=== PATIENT | female | born 1945 | race Caucasian/White ===

== ENCOUNTER 2018-03-19 17:51 | Outpatient (CLI) | payer MEDICARE, OTHER | END 2018-03-19 17:52 | disposition critical access hospital (66) | LOC: EMS 17:51 | PROVIDERS: ATTEND Surgery | DX: R11.2 Nausea with vomiting, unspecified (principal); R53.1 Weakness | CPT/HCPCS: A0425; A0427 ==

== ENCOUNTER 2018-03-19 18:18 | Inpatient (IN) | payer MEDICARE, OTHER ==
[2018-03-19 18:55] LABS: BASOPHILS # (AUTO) 0.1 10^3/uL (0.0-0.1); BASOPHILS % (AUTO) 1.2 %; EOSINOPHILS # (AUTO) 0.1 10^3/uL (0.0-0.7); EOSINOPHILS % (AUTO) 2.1 %; HGB - HEMOGLOBIN 10.8 g/dL (12.0-16.0); LYMPHOCYTES # (AUTO) 0.9 10^3/uL (1.5-3.5); LYMPHOCYTES % (AUTO) 15.7 %; MEAN CORPUSCULAR HEMOGLOBIN 33.3 pg (27.0-31.0); MEAN CORPUSCULAR HGB CONC 33.8 g/dL (32.0-36.0); MEAN CORPUSCULAR VOLUME 98.6 fL (81.0-99.0); MEAN PLATELET VOLUME 9.3 fL (7.9-10.8); MONOCYTES # (AUTO) 0.4 10^3/uL (0.0-1.0); MONOCYTES % (AUTO) 7.6 %; NEUTROPHILS # (AUTO) 4.3 10^3/uL (1.5-6.6); NEUTROPHILS % (AUTO) 73.4 %; PLT - PLATELET COUNT 60 10^3/uL (130-450); RED BLOOD COUNT 3.26 10^6/uL (4.20-5.40); RED CELL DISTRIBUTION WIDTH 13.5 % (12.0-15.0); WHITE BLOOD COUNT 5.8 x10^3/uL (4.8-10.8)
[2018-03-19 19:11] LABS: ALBUMIN 3.2 g/dL (3.2-5.5); ALBUMIN/GLOBULIN RATIO 0.8 (1.0-2.2); BILIRUBIN,TOTAL 1.6 mg/dL (0.2-1.0); CALCIUM 8.8 mg/dL (8.5-10.3); TOTAL PROTEIN 7.1 g/dL (6.7-8.2)
[2018-03-19] MEDS ORDERED: SODIUM CHLORIDE 0.9% 1,000 ML IV ONE ×2 (19:54→19:55)
[2018-03-19] MEDS ORDERED: INSULIN REGULAR HUMAN 100 UNIT/1 ML 10 ML MDV SUBQ STA (19:57)
[2018-03-19] MEDS ORDERED: DEXTROSE 50% ABBOJECT 25 GM/50 ML SYRINGE IVP STA (19:57)
[2018-03-19] MEDS ORDERED: PROMETHAZINE INJ 12.5 MG in SODIUM CHLORIDE 0.9% 50 ML IV STA (20:28)
--- NOTE | 2018-03-19 22:02 | CT Preliminary Report ---
Exam: CT ABDOMEN/PELVIS W/O IMPRESSION: 1. Liver cirrhosis. Splenomegaly. 2. Cholelithiasis. 3. Mild diffuse peripancreatic stranding as seen with acute pancreatitis. 4. Minimal ascites. 5. See above. [facility] SITE ID: [id number]
--- NOTE | 2018-03-19 22:08 | CT Report ---
EXAM: CT ABDOMEN AND PELVIS EXAM DATE: 03/19/2018 09:33 PM. CLINICAL HISTORY: Diffuse abdominal pain, vomiting. COMPARISONS: None. TECHNIQUE: Routine helical CT imaging was performed through the abdomen and pelvis. IV contrast: No. Enteric contrast: No. Reconstructions: Coronal and sagittal. In accordance with CT protocol optimization, one or more of the following dose reduction techniques w ere utilized for this exam: automated exposure control, adjustment of mA and/or KV based on patient s ize, or use of iterative reconstructive technique. FINDINGS: Mild bibasilar reticular opacities, could represent mild fibrosis. Coronary artery calcific ation. Liver: Liver surface irregularity as seen with liver cirrhosis. Minimal perihepatic ascites. Gallbladder: Calcified gallstones fill half of the gallbladder. Bile ducts: No bile duct dilatation. Pancreas: Mild diffuse peripancreatic stranding, could represent acute pancreatitis. Spleen: Splenomegaly with a length of 14.4 cm. Adrenals: Unremarkable. Kidneys: No hydronephrosis. No renal calculi. Bowel: No evidence for bowel obstruction. Diverticulum at the descending colon-sigmoid colon junction . Overall minimal ascites. Pelvis: The bladder contains a tiny gas bubble anteriorly. Uterus and adnexal regions appear within n ormal limits. Vascular structures: Marked atherosclerotic calcification of the abdominal aorta and its branches. Bones: No acute bone findings. IMPRESSION: 1. Liver cirrhosis. Splenomegaly. 2. Cholelithiasis. 3. Mild diffuse peripancreatic stranding as seen with acute pancreatitis. 4. Minimal ascites. 5. See above. [facility] Referring Provider Line: [phone] SITE ID: [id number]
--- NOTE | 2018-03-19 22:11 | ED Physician Documentation ---
History of Present Illness - Stated complaint Stated Complaint: N/V - Chief complaint Chief Complaint: Abd Pain - History obtained from History obtained from: Patient, Family - History of Present Illness Timing: Today Pain level max: 8 Pain level now: 3 - Additonal information Additional information: Patient is a 72-year-old female who is visiting from [employer] who began vomiting today. Has had epigastric pain as well. Denies any recent alcohol use. Patient states that she does have a history degree of liver cirrhosis, from nonalcoholic steatohepatitis. States she is on the liver transplant list at [facility]. No changes in her medications. No recent surgery. Nothing makes her symptoms better. They are worse with attempting to eat. Review of Systems Ten Systems: 10 systems reviewed and negative Constitutional: denies: Fever, Chills Ears: denies: Ear pain Cardiac: denies: Chest pain / pressure Respiratory: denies: Cough GI: reports: Vomiting : denies: Dysuria, Frequency, Hesitancy Skin: denies: Rash Musculoskeletal: denies: Neck pain, Back pain Neurologic: denies: Focal weakness, Numbness, Headache PD PAST MEDICAL HISTORY - Past Medical History Past Medical History: Yes Cardiovascular: Coronary artery disease, OR Endocrine/Autoimmune: Type 2 diabetes GI: Cirrhosis - Past Surgical History Past Surgical History: Yes Cardiovascular: CABG - Present Medications Home Medications: Ambulatory Orders Medication Instructions Recorded Confirmed Ascorbic Acid [Vitamin C] 1 tab PO DAILY 03/19/18 03/19/18 Aspirin [Aspirin EC] 1 tab PO 03/19/18 Cholecalciferol (Vitamin D3) 1 tab PO 03/19/18 [Vitamin D3] Ferrous Sulfate [High Potency Iron] 325 mg PO DAILY 03/19/18 03/19/18 Furosemide [Lasix] 20 mg PO BID 03/19/18 03/19/18 Insulin Glargine [Lantus Solostar] 40 units SQ DAILY 03/19/18 03/19/18 Isosorbide Mononitrate [Isosorbide 60 mg PO DAILY 03/19/18 03/19/18 Mononitrate ER] Losartan [Cozaar] 25 mg PO BID 03/19/18 03/19/18 Nadolol [Corgard] 10 mg PO DAILY PM 03/19/18 03/19/18 Nadolol [Corgard] 20 mg PO DAILY 03/19/18 03/19/18 Nitroglycerin [Nitrostat] 1 tab PO PRN PRN 03/19/18 03/19/18 Omeprazole [Omeprazole] 1 tab PO DAILY 03/19/18 03/19/18 Oxybutynin [Ditropan] 1 tab PO BID 03/19/18 03/19/18 Pravastatin [Pravachol] 1 tab PO DAILY 03/19/18 03/19/18 Pyridoxine HCl [Vitamin B-6] 1 tab PO DAILY 03/19/18 03/19/18 Spironolactone [Aldactone] 25 mg PO DAILY 03/19/18 03/19/18 - Allergies Allergies/Adverse Reactions: Allergies Allergy/AdvReac Type Severity Reaction Status Date / Time aspirin Allergy Unknown Verified 03/19/18 18:38 cefuroxime [From Ceftin] Allergy Unknown Verified 03/19/18 18:38 ciprofloxacin [From Cipro] Allergy Unknown Verified 03/19/18 18:38 codeine Allergy Unknown Verified 03/19/18 18:38 doxycycline Allergy Unknown Verified 03/19/18 18:38 ibuprofen Allergy Unknown Verified 03/19/18 18:38 metformin Allergy Unknown Verified 03/19/18 18:38 naproxen Allergy Unknown Verified 03/19/18 18:38 nitrofurantoin Allergy Unknown Verified 03/19/18 18:38 oxycodone Allergy Unknown Verified 03/19/18 18:38 propranolol [From Inderal LA] Allergy Unknown Verified 03/19/18 18:38 silver Allergy Unknown Verified 03/19/18 18:38 Sulfa (Sulfonamide Allergy Unknown Verified 03/19/18 18:38 Antibiotics) tramadol Allergy Unknown Verified 03/19/18 18:38 surgical tape Allergy Unknown Uncoded 03/19/18 18:38 - Social History Does the pt smoke?: No Smoking Status: Never smoker Does the pt drink ETOH?: No Does the pt have substance abuse?: No - Immunizations Immunizations are current?: Yes - POLST Patient has POLST: No PD ED PE NORMAL - Vitals Vital signs reviewed: Yes - General General: Alert and oriented X 3 - HEENT HEENT: Moist mucous membranes - Neck Neck: Supple, no meningeal sign - Cardiac Cardiac: RRR, Strong equal pulses - Respiratory Respiratory: No respiratory distress, Clear bilaterally - Abdomen Abdomen: Soft, Non tender, Non distended - Back Back: No spinal TTP - Derm Derm: Warm and dry, No rash - Extremities Extremities: No edema, No calf tenderness / cord - Neuro Neuro: Alert and oriented X 3 - Psych Psych: Normal mood, Normal affect Results - Vitals Vitals: Vital Signs - 24 hr 03/19/18 03/19/18 03/19/18 18:20 20:01 20:30 Temperature 36.5 C Heart Rate 49 L 47 L 48 L Respiratory 18 15 16 Rate Blood Pressure 153/46 H 142/60 H 142/53 H O2 Saturation 93 94 90 L 03/19/18 03/19/18 21:37 22:36 Temperature Heart Rate 50 L 60 Respiratory 16 21 Rate Blood Pressure 146/50 H 122/42 L O2 Saturation 92 92 Oxygen O2 Source Room air - Labs Labs: Laboratory Tests 03/19/18 03/19/18 03/19/18 18:50 18:50 18:50 WBC 5.8 RBC 3.26 L Hgb 10.8 L Hct 32.1 L MCV 98.6 MCH 33.3 H MCHC 33.8 RDW 13.5 Plt Count 60 L MPV 9.3 Neut # 4.3 Lymph # 0.9 L [place] # 0.4 Eos # 0.1 Baso # 0.1 Absolute Nucleated RBC 0.00 Nucleated RBC % 0.0 Sodium 136 Potassium 6.1 H* Chloride 110 Carbon Dioxide 20 L Anion Gap 6.0 BUN 58 H Creatinine 2.0 H Estimated GFR (MDRD) 25 L Glucose 199 H Calcium 8.8 Total Bilirubin 1.6 H AST 51 H ALT 37 Alkaline Phosphatase 176 H Troponin I < 0.04 Total Protein 7.1 Albumin 3.2 Globulin 3.9 Albumin/Globulin Ratio 0.8 L Lipase 42 03/19/18 20:40 WBC RBC Hgb Hct MCV MCH MCHC RDW Plt Count MPV Neut # Lymph # [place] # Eos # Baso # Absolute Nucleated RBC Nucleated RBC % Sodium Potassium 6.1 H* Chloride Carbon Dioxide Anion Gap BUN Creatinine Estimated GFR (MDRD) Glucose Calcium Total Bilirubin AST ALT Alkaline Phosphatase Troponin I Total Protein Albumin Globulin Albumin/Globulin Ratio Lipase - Rads (name of study) CT abd/pelvis w/o Radiology: Prelim report reviewed, EMP read contemporaneously, See rad report ( Liver cirrhosis. Splenomegaly. Cholelithiasis. Mild diffuse peripancreatic stranding is seen with acute pancreatitis. Minimal ascites) PD MEDICAL DECISION MAKING - ED course Complexity details: reviewed results, re-evaluated patient, considered differential, d/w patient, d/w family, d/w sales enablement consultant ED course: Patient is a 72-year-old female who presents to the emergency department with abdominal pain and vomiting. She does have a history of liver cirrhosis and liver transplant list. Appears to have acute renal failure and hyperkalemia. No EKG changes. Given insulin, glucose and IV fluids. She does not have a history of renal failure per the family, old records are not available tonight. We will hydrate her overnight and see how she progresses in the morning. On CT scan, it appears that she may have acute pancreatitis as well. Pain well controlled. We did discuss transfer to [facility], but patient does not want to be transferred at this time. Discussed with case with Dr. Hurd, hospitalist who accepts. This document was made in part using voice recognition software. While efforts are made to proofread this document, sound alike and grammatical errors may occur. Departure - Departure Disposition: 66 [facility] DC/Xfer Clinical Impression: Hyperkalemia, Acute renal insufficiency, Dehydration Pancreatitis Qualifiers: Chronicity: acute Pancreatitis type: unspecified pancreatitis type Acute pancreatitis complication: no infection or necrosis Qualified Code(s): K85.90 - Acute pancreatitis without necrosis or infection, unspecified Vomiting Qualifiers: Vomiting type: unspecified Vomiting Intractability: non-intractable Nausea presence: with nausea Qualified Code(s): R11.2 - Nausea with vomiting, unspecified Condition: Stable Discharge Date/Time: 03/20/18 00:20
[2018-03-19] MEDS ORDERED: SODIUM CHLORIDE FLUSH 0.9% 10 ML SYRINGE IVP PRN (23:40)
[2018-03-19] MEDS ORDERED: PROCHLORPERAZINE 10 MG/2 ML VIAL IVP PRN (23:40)
[2018-03-19] MEDS ORDERED: IBUPROFEN 400 MG TABLET PO PRN (23:40)
[2018-03-19] MEDS ORDERED: TEMAZEPAM 15 MG CAPSULE PO PRN (23:40)
[2018-03-19] MEDS ORDERED: D5.45NS W/20 MEQ KCL 1,000 ML IV SCH (23:45)
[2018-03-20] MEDS ORDERED: NITROGLYCERIN SL 0.4 MG TABLET SL PRN (00:03)
--- NOTE | 2018-03-20 00:15 | HISTORY & PHYSICAL EXAMINATION ---
Chief Complaint - Chief Complaint Chief Complaint: Nausea and Vomiting History of Present Illness - Admitted From Admitted From:: Home - History Obtained From History obtained from: patient, daughter, Ed Physician - History of Present Illness HPI Comment/Other: Ms. Avelina Trejo is a very pleasant 72-year-old female with a history of diabetes, coronary artery disease status post myocardial infarction, anemia, hepato-steatosis, cirrhosis, and CMV. She has been experiencing some dyspepsia over the last several days and today she began vomiting around 1 PM and could not stop. For this reason the patient's daughter brought her into the emergency department where she was found to have elevated transaminases and possible fat stranding on CT which could be significant for acute pancreatitis. Despite this the patient's lipase level is only 40 and the patient denies any significant abdominal pain but rather just the intractable nausea and vomiting.She will be admitted to medical floor and placed n.p.o., given IV fluids, and her electrolytes will be corrected. History - Past Medical History Cardiovascular: reports: Coronary artery disease, [place] Endocrine/Autoimmune: reports: Type 2 diabetes GI: reports: Cirrhosis MRSA Hx?: No - Past Surgical History Cardiovascular: reports: CABG - POLST Patient has POLST: No Meds/Allgy - Home Medications Home Medications: Ambulatory Orders Medication Instructions Recorded Confirmed Ascorbic Acid [Vitamin C] 1 tab PO DAILY 03/19/18 03/19/18 Aspirin [Aspirin EC] 1 tab PO 03/19/18 Cholecalciferol (Vitamin D3) 1 tab PO 03/19/18 [Vitamin D3] Ferrous Sulfate [High Potency Iron] 325 mg PO DAILY 03/19/18 03/19/18 Furosemide [Lasix] 20 mg PO BID 03/19/18 03/19/18 Insulin Glargine [Lantus Solostar] 40 units SQ DAILY 03/19/18 03/19/18 Isosorbide Mononitrate [Isosorbide 60 mg PO DAILY 03/19/18 03/19/18 Mononitrate ER] Losartan [Cozaar] 25 mg PO BID 03/19/18 03/19/18 Nadolol [Corgard] 10 mg PO DAILY PM 03/19/18 03/19/18 Nadolol [Corgard] 20 mg PO DAILY 03/19/18 03/19/18 Nitroglycerin [Nitrostat] 1 tab PO PRN PRN 03/19/18 03/19/18 Omeprazole [Omeprazole] 1 tab PO DAILY 03/19/18 03/19/18 Oxybutynin [Ditropan] 1 tab PO BID 03/19/18 03/19/18 Pravastatin [Pravachol] 1 tab PO DAILY 03/19/18 03/19/18 Pyridoxine HCl [Vitamin B-6] 1 tab PO DAILY 03/19/18 03/19/18 Spironolactone [Aldactone] 25 mg PO DAILY 03/19/18 03/19/18 - Allergies Allergies/Adverse Reactions: Allergies Allergy/AdvReac Type Severity Reaction Status Date / Time aspirin Allergy Unknown Verified 03/19/18 18:38 cefuroxime [From Ceftin] Allergy Unknown Verified 03/19/18 18:38 ciprofloxacin [From Cipro] Allergy Unknown Verified 03/19/18 18:38 codeine Allergy Unknown Verified 03/19/18 18:38 doxycycline Allergy Unknown Verified 03/19/18 18:38 ibuprofen Allergy Unknown Verified 03/19/18 18:38 metformin Allergy Unknown Verified 03/19/18 18:38 naproxen Allergy Unknown Verified 03/19/18 18:38 nitrofurantoin Allergy Unknown Verified 03/19/18 18:38 oxycodone Allergy Unknown Verified 03/19/18 18:38 propranolol [From Inderal LA] Allergy Unknown Verified 03/19/18 18:38 silver Allergy Unknown Verified 03/19/18 18:38 Sulfa (Sulfonamide Allergy Unknown Verified 03/19/18 18:38 Antibiotics) tramadol Allergy Unknown Verified 03/19/18 18:38 surgical tape Allergy Unknown Uncoded 03/19/18 18:38 Review of Systems - Constitutional Constitutional: reports: Fatigue, Poor appetite. denies: Fever, Chills - Eyes Eyes: denies: Pain, Irritation, Amaurosis, Blurred vision - Ears, Nose & Throat Ears, Nose & Throat: denies: Ear pain, Hearing loss, Hearing aids, Tinnitus, Vertigo, Nasal pain, Nasal discharge - Cardiovascular Cariovascular: denies: Irregular heart rate, Palpitations, Chest pain, Edema, Syncope - Respiratory Respiratory: denies: Cough, Sputum production, Wheezing, Snoring, Hemoptysis, SOB at rest - Gastrointestinal Gastrointestinal: reports: Nausea, Vomiting. denies: Abdominal pain, Abdominal distention, Constipation, Diarrhea, Change in bowel habits, Rectal bleeding, [place] blood emesis, Coffee grounds emesis - Genitourinary Genitourinary: denies: Dysuria, Frequency, Urgency, Hematuria - Musculoskeletal Musculoskeletal: denies: Muscle pain, Back pain, Muscle aches, Stiffness - Integumentary Integumentary: denies: Rash, Pruritis, Lesions, Dryness - Neurological Neurological: denies: General weakness, Focal weakness, Headache, Dizziness - Psychiatric Psychiatric: denies: Depression, Anxiety, Suicidal, Hallucinations - Endocrine Endocrine: denies: Polyuria, Polydypsia, Polyphagia - Hematologic/Lymphatic Hematologic/Lymphatic: denies: Anemia, Bruising, Petechiae - All Other Systems All Other Systems: reports: Reviewed and negative Exam - Vital Signs Reviewed Vital Signs: Yes Vital Signs: Vital Signs x48h Temp Pulse Resp BP Pulse Ox 03/20/18 00:01 51 L 16 137/54 H 95 03/19/18 22:36 60 21 122/42 L 92 03/19/18 21:37 50 L 16 146/50 H 92 03/19/18 20:30 48 L 16 142/53 H 90 L 03/19/18 20:01 47 L 15 142/60 H 94 03/19/18 18:20 36.5 C 49 L 18 153/46 H 93 - Physical Exam General Appearance: positive: Alert, Mild distress Eyes Bilateral: positive: Normal inspection, PERRL, EOMI, No lid inflammation, Conjunctivae nml, No scleral icterus ENT: positive: ENT inspection nml, Pharynx nml, No signs of dehydration Neck: positive: Nml inspection, Thyroid nml, No JVD, Trachea midline. negative : Thyromegaly Respiratory: positive: Chest non-tender, No respiratory distress, Breath sounds nml. negative: Wheezes, Rales, Rhonchi Cardiovascular: positive: Regular rate & rhythm, No murmur, No gallop, Irregularly irregular, Extrasystoles Peripheral Pulses: positive: 1+ Abdomen: positive: Non-tender, No organomegaly, Nml bowel sounds, No distention. negative: Guarding, Rebound Back: positive: Nml inspection. negative: CVA tenderness (R), CVA tenderness (L ) Skin: positive: Color nml, No rash, Warm, Dry. negative: Cyanosis Extremities: positive: Non-tender, Full ROM, Nml appearance, No pedal edema Neurologic/Psychiatric: positive: Oriented x3, CN's nml (2-12), Motor nml, Sensation nml, Mood/affect nml Conclusion/Plan - Problem List (1) Hyperkalemia Conclusion/Plan: The patient takes spirinolactone for cirrhosis and CHF, will stop and give normal saline IVF and a dose of lasix IVP. Will recheck levels later today. (2) Vomiting Conclusion/Plan: Unsure of etiology, the patient has been nauseous for approximately 2 days according to her daughter. This may be a viral gastroenteritis but it is doubtful that this is related to a pancreatitis diagnosis. Qualifiers: Vomiting type: unspecified Vomiting Intractability: non-intractable Nausea presence: with nausea Qualified Code(s): R11.2 - Nausea with vomiting, unspecified (3) Dehydration Conclusion/Plan: The patient is receiving NS at 150 cc/hr, as she is currently NPO. Will try to feed later today and if successful will reduce IV fluids. (4) Acute renal insufficiency Conclusion/Plan: Suspect pre-renal etiology. The patient has been recieving NS at 150cc/hr, will recheck creatinine later today. (5) Pancreatitis Conclusion/Plan: Unsure of this diagnosis due to minimal abdominal pain and normal Lipase levels , however CT scan noted some fat stranding which might be consistent with acute pancreatitis. Will recheck amylase and lipase this morning but remained doubtful of the patient is experiencing acute pancreatitis at this time. Qualifiers: Chronicity: acute Pancreatitis type: unspecified pancreatitis type Acute pancreatitis complication: no infection or necrosis Qualified Code(s): K85.90 - Acute pancreatitis without necrosis or infection, unspecified - Lab Results Lab results reviewed: Yes Fish Bones: 03/19/18 18:50 03/19/18 20:40 - Diagnostic Imaging Results Diagnostic Imaging Results: positive: Final report reviewed Diagnostic Imaging Results Comments: EXAM: CT ABDOMEN AND PELVIS EXAM DATE: 03/19/2018 09:33 PM. CLINICAL HISTORY: Diffuse abdominal pain, vomiting. COMPARISONS: None. TECHNIQUE: Routine helical CT imaging was performed through the abdomen and pelvis. IV contrast: No. Enteric contrast: No. Reconstructions: Coronal and sagittal. In accordance with CT protocol optimization, one or more of the following dose reduction techniques were utilized for this exam: automated exposure control, adjustment of mA and/or KV based on patient size, or use of iterative reconstructive technique. FINDINGS: Mild bibasilar reticular opacities, could represent mild fibrosis. Coronary artery calcification. Liver: Liver surface irregularity as seen with liver cirrhosis. Minimal perihepatic ascites. Gallbladder: Calcified gallstones fill half of the gallbladder. Bile ducts: No bile duct dilatation. Pancreas: Mild diffuse peripancreatic stranding, could represent acute pancreatitis. Spleen: Splenomegaly with a length of 14.4 cm. Adrenals: Unremarkable. Kidneys: No hydronephrosis. No renal calculi. Bowel: No evidence for bowel obstruction. Diverticulum at the descending colon- sigmoid colon junction. Overall minimal ascites. Pelvis: The bladder contains a tiny gas bubble anteriorly. Uterus and adnexal regions appear within normal limits. Vascular structures: Marked atherosclerotic calcification of the abdominal aorta and its branches. Bones: No acute bone findings. IMPRESSION: 1. Liver cirrhosis. Splenomegaly. 2. Cholelithiasis. 3. Mild diffuse peripancreatic stranding as seen with acute pancreatitis. 4. Minimal ascites. 5. See above. - EKG Results EKG Interpreted Independently: Yes EKG Comparison: No prior EKG EKG Findings: Sinus bradycardia Core Measures - Anticipated LOS I expect patient to be DC'd or transferred within 96 hours.: Yes - DVT/VTE - Prophylaxis VTE/DVT Device ordered at admit?: Yes
[2018-03-20] MEDS: INSULIN REGULAR HUMAN 100 UNIT/1 ML 10 ML MDV SUBQ SCH ×3 (00:57→12:03)
[2018-03-20] MEDS: SODIUM CHLORIDE FLUSH 0.9% 10 ML SYRINGE IVP SCH ×3 (00:58→19:22)
[2018-03-20] MEDS: SODIUM CHLORIDE 0.9% 1,000 ML IV SCH ×3 (02:00→18:54)
[2018-03-20 02:25] LABS: HEMOGLOBIN A1C 0.61 g/dL; HEMOGLOBIN A1C % 6.8 % (4.6-6.2)
[2018-03-20] MEDS ORDERED: DEXTROSE 50% ABBOJECT 25 GM/50 ML SYRINGE ONE (04:21)
[2018-03-20] MEDS: PANTOPRAZOLE 40 MG TABLET PO SCH (06:32)
[2018-03-20] MEDS ORDERED: FUROSEMIDE 100 MG/10 ML VIAL IVP ONE (06:39)
[2018-03-20 06:47] LABS: CREATININE 1.8 mg/dL (0.4-1.0)
[2018-03-20 07:00] LABS: AMYLASE 54 U/L (28-100); LIPASE 36 U/L (22-51)
[2018-03-20] MEDS: PYRIDOXINE 100 MG TABLET PO SCH (08:44)
[2018-03-20] MEDS: ISOSORBIDE MONONITRATE ER 30 MG TABLET PO SCH (08:45)
[2018-03-20] MEDS: FUROSEMIDE 20 MG TABLET PO SCH ×2 (08:46→10:23)
[2018-03-20] MEDS ORDERED: LOSARTAN 50 MG TABLET PO SCH (09:00)
[2018-03-20] MEDS ORDERED: OMEPRAZOLE PO SCH (09:00)
[2018-03-20] MEDS ORDERED: NADOLOL 20 MG TABLET PO SCH ×3 (09:00→21:00)
[2018-03-20] MEDS ORDERED: OXYBUTYNIN 5MG TABLET PO SCH (09:00)
[2018-03-20] MEDS ORDERED: SPIRONOLACTONE 25 MG TABLET PO SCH (09:00)
[2018-03-20] MEDS ORDERED: PYRIDOXINE HCL PO SCH (09:00)
[2018-03-20] MEDS ORDERED: ISOSORBIDE MONONITRATE 60 MG PO SCH (09:00)
[2018-03-20 11:29] LABS: CALCIUM 8.4 mg/dL (8.5-10.3); CREATININE 1.9 mg/dL (0.4-1.0)
[2018-03-20] MEDS ORDERED: SODIUM CHLORIDE 0.9% 1,000 ML IV SCH (12:00)
[2018-03-20] MEDS ORDERED: SENNA 8.6 MG TABLET PO SCH (14:26)
[2018-03-20] MEDS: DOCUSATE SODIUM 250 MG CAPSULE PO SCH ×2 (14:51→20:34)
[2018-03-20] MEDS: INSULIN ASPART 300 UNIT/3 ML PEN SUBQ SCH ×2 (17:57→20:38)
--- NOTE | 2018-03-20 18:49 | PROVIDER PROGRESS NOTE ---
Assessment/Plan - Problem List (1) Hyperkalemia Assessment/Plan: Patient still has upper limit of normal K. and creat minimally decreased from 2 to 1.9. Continue iv hydration w/ saline and watch renal function an additional day. Monitor electrolytes and BUN/creat. Remein off PAOLA-I and Spironolactone, which retain potassium. (2) Vomiting Qualifiers: Vomiting type: unspecified Vomiting Intractability: non-intractable Nausea presence: with nausea Qualified Code(s): R11.2 - Nausea with vomiting, unspecified Assessment/Plan: Her N/V stopped as quickly as it started in <24 hours. The lipase and amylase are normal, ruling out acute pancreatitis, despite what the abdominal imaging showed. She suspects it was "food poisoning", however the daughter ate all the things that the patient ate and is feeling fine. Monitor clinically. (3) Dehydration Assessment/Plan: Slightly improved, by clinical exam. Continue peripheral iv saline hydration. (4) Acute renal insufficiency Assessment/Plan: The patient's daughter was able to show me patient's creat from other lab draws: In Aug 2017: creat was 0.8 In December 2017, creat was 1.1 In January 2018, creatt was 1.0 This is new onset renal dysfunction and etiologies could be pre-renal with dehydration noted clinically, or hepato-renal syndrome. The patient has an appt to be evaluated for being put on a transplant lsit in 1 month and she knows renal function will be addressed. Continue saline hydration and follow labs. (5) IDDM (insulin dependent diabetes mellitus) Assessment/Plan: Pt on DM diet Carb-controlled , advanced to solids with Insulin coverage. Continue to monitor POC glu. 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 She is not SOB here, but is mostly at rest, in a chair. Stable LFTs and no signs of ictris or high ammonia level. (7) Hx of CABG Assessment/Plan: Stable - Current Meds Current Meds: Current Medications Generic Name Dose Route Start Last Admin Trade Name Freq PRN Reason Stop Dose Admin Docusate Sodium 250 - 500 mg 03/20/18 15:00 03/20/18 14:51 Colace 250mg Capsule PO 250 mg BID GWENDOLYN Administration Insulin Aspart 1 - 9 unit 03/20/18 17:00 03/20/18 17:57 Novolog SUBQ Not Given 0800,1200,1700,2100 [facility] Protocol Isosorbide Mononitrate 60 mg 03/20/18 09:00 03/20/18 08:45 Imdur PO 60 mg DAILY GWENDOLYN Administration Pantoprazole Sodium 40 mg 03/20/18 07:00 03/20/18 06:32 Protonix PO Not Given QDAC [facility] Pyridoxine HCl 50 mg 03/20/18 09:00 03/20/18 08:44 Vitamin B-6 PO 50 mg DAILY GWENDOLYN Administration Sodium Chloride 10 ml 03/19/18 23:40 03/20/18 04:19 Normal Saline Flush 0.9% IVP 10 ml PRN PRN Administration NEEDED PER PROVIDER ORDERS Sodium Chloride 10 ml 03/20/18 01:00 03/20/18 08:46 Normal Saline Flush 0.9% IVP Not Given 0100,0900,1700 [facility] - Lab Result Fish Bone Diagrams: 03/21/18 06:39 03/21/18 06:39 - Additional Planning My Orders: My Active Orders 03/20/18 15:00 Docusate Sodium 250Mg Capsule [Colace 250Mg Capsule] 250 - 500 mg PO BID 03/20/18 17:00 Insulin Aspart [NovoLOG] 1 - 9 unit SUBQ 0800,1200,1700,2100 03/20/18 19:00 Sodium Chloride 0.9% [Normal Saline 0.9%] 1,000 ml IV 60 mls/hr 03/20/18 21:00 Nadolol [Corgard] 5 mg PO BID Senna [Senokot] 8.6 mg PO BID 03/20/18 Dinner DIET [Carb-controlled Diet] [DIET] Subjective - Subjective Patient Reports: Feeling Better, Other (No further N/V (it was after drinking coffee with cream from a cafe, stopped in 20 hours as quickly as it started)) Objective Vital Signs: Vital Signs - 24 hr 03/20/18 03/20/18 03/20/18 00:01 00:59 06:56 Temperature 36.6 C 36.3 C L Heart Rate 51 L Heart Rate [ 55 L 48 L Brachial] Respiratory 16 18 20 Rate Blood Pressure 137/54 H Blood Pressure 141/46 H 149/54 H [Left Brachial artery] Blood Pressure [Right Brachial artery] O2 Saturation 95 94 92 03/20/18 03/20/18 03/20/18 08:00 12:00 15:44 Temperature 36.3 C L 36.5 C 36.7 C Heart Rate Heart Rate [ 46 L 51 L 50 L Brachial] Respiratory 16 16 14 Rate Blood Pressure Blood Pressure 148/49 H 137/37 H [Left Brachial artery] Blood Pressure 136/44 H [Right Brachial artery] O2 Saturation 94 92 95 Oxygen O2 Source Room air I&O (Last 24 Hrs): Intake and Output Totals x24h 03/18/18 03/19/18 03/20/18 23:59 23:59 23:59 Intake Total 2683 Balance 2683 General: Alert, Oriented x3 HEENT: Other (Dry oral mucosa) Neck: Supple, No JVD Neuro: Non Focal Cardiovascular: Regular rate, No murmurs Respiratory: Breath sounds nml Abdomen: Soft Extremities: No edema - Results Results: Laboratory Results WBC 5.8 x10^3/uL (4.8-10.8) 03/19/18 18:50 RBC 3.26 10^6/uL (4.20-5.40) L 03/19/18 18:50 Hgb 10.8 g/dL (12.0-16.0) L 03/19/18 18:50 Hct 32.1 % (37.0-47.0) L 03/19/18 18:50 MCV 98.6 fL (81.0-99.0) 03/19/18 18:50 MCH 33.3 pg (27.0-31.0) H 03/19/18 18:50 MCHC 33.8 g/dL (32.0-36.0) 03/19/18 18:50 RDW 13.5 % (12.0-15.0) 03/19/18 18:50 Plt Count 60 10^3/uL (130-450) L 03/19/18 18:50 MPV 9.3 fL (7.9-10.8) 03/19/18 18:50 Neut # 4.3 10^3/uL (1.5-6.6) 03/19/18 18:50 Lymph # 0.9 10^3/uL (1.5-3.5) L 03/19/18 18:50 [place] # 0.4 10^3/uL (0.0-1.0) 03/19/18 18:50 Eos # 0.1 10^3/uL (0.0-0.7) 03/19/18 18:50 Baso # 0.1 10^3/uL (0.0-0.1) 03/19/18 18:50 Absolute Nucleated RBC 0.00 x10^3/uL 03/19/18 18:50 Nucleated RBC % 0.0 /100WBC 03/19/18 18:50 Sodium 141 mmol/L (135-145) 03/20/18 11:05 Potassium 5.0 mmol/L (3.5-5.0) 03/20/18 17:15 Chloride 116 mmol/L (101-111) H 03/20/18 11:05 Carbon Dioxide 20 mmol/L (21-32) L 03/20/18 11:05 Anion Gap 5.0 (6-13) L 03/20/18 11:05 BUN 54 mg/dL (6-20) H 03/20/18 11:05 Creatinine 1.9 mg/dL (0.4-1.0) H 03/20/18 11:05 Estimated GFR (MDRD) 26 (>89) L 03/20/18 11:05 Glucose 134 mg/dL (70-100) H 03/20/18 11:05 POC Whole Bld Glucose 157 mg/dL (70 - 100) H 03/20/18 17:21 Glycated Hemoglobin 6.8 % (4.6-6.2) H 03/19/18 18:50 Estim Average Glucose 148 (70-100) H 03/19/18 18:50 Calcium 8.4 mg/dL (8.5-10.3) L 03/20/18 11:05 Total Bilirubin 1.6 mg/dL (0.2-1.0) H 03/19/18 18:50 GGT 68 IU/L (8-38) H 03/20/18 11:05 AST 51 IU/L (10-42) H 03/19/18 18:50 ALT 37 IU/L (10-60) 03/19/18 18:50 Alkaline Phosphatase 176 IU/L (42-121) H 03/19/18 18:50 Troponin I < 0.04 ng/mL (<0.49) 03/20/18 11:05 Total Protein 7.1 g/dL (6.7-8.2) 03/19/18 18:50 Albumin 3.2 g/dL (3.2-5.5) 03/19/18 18:50 Globulin 3.9 g/dL (2.1-4.2) 03/19/18 18:50 Albumin/Globulin Ratio 0.8 (1.0-2.2) L 03/19/18 18:50 Amylase 54 U/L (28-100) 03/20/18 06:27 Lipase 36 U/L (22-51) 03/20/18 06:27 ABX Reporting Has patient been on IV antibiotics over the past 48 hours?: No
[2018-03-20] MEDS: NADOLOL 20 MG TABLET PO SCH (20:37)
[2018-03-20] MEDS: SENNA 8.6 MG TABLET PO SCH (20:44)
[2018-03-20] MEDS ORDERED: INSULIN GLARGINE 300 UNIT/3 ML PEN SUBQ SCH (21:00)
[2018-03-21] MEDS: SODIUM CHLORIDE FLUSH 0.9% 10 ML SYRINGE IVP SCH ×3 (03:17→16:47)
[2018-03-21 06:53] LABS: HGB - HEMOGLOBIN 9.4 g/dL (12.0-16.0); MEAN CORPUSCULAR HEMOGLOBIN 33.2 pg (27.0-31.0); MEAN CORPUSCULAR HGB CONC 33.7 g/dL (32.0-36.0); MEAN CORPUSCULAR VOLUME 98.6 fL (81.0-99.0); RED BLOOD COUNT 2.84 10^6/uL (4.20-5.40); RED CELL DISTRIBUTION WIDTH 13.6 % (12.0-15.0); WHITE BLOOD COUNT 6.4 x10^3/uL (4.8-10.8)
[2018-03-21] MEDS: PANTOPRAZOLE 40 MG TABLET PO SCH (06:55)
[2018-03-21 07:01] LABS: CALCIUM 8.4 mg/dL (8.5-10.3); CREATININE 1.9 mg/dL (0.4-1.0)
[2018-03-21] MEDS ORDERED: SODIUM CHLORIDE 0.9% 1,000 ML IV ONE (07:50)
[2018-03-21] MEDS: INSULIN ASPART 300 UNIT/3 ML PEN SUBQ SCH ×3 (08:25→16:51)
[2018-03-21] MEDS: SENNA 8.6 MG TABLET PO SCH (08:35)
[2018-03-21] MEDS: DOCUSATE SODIUM 250 MG CAPSULE PO SCH (08:35)
[2018-03-21] MEDS: NADOLOL 20 MG TABLET PO SCH (08:40)
[2018-03-21] MEDS: ISOSORBIDE MONONITRATE ER 30 MG TABLET PO SCH (08:40)
[2018-03-21] MEDS: PYRIDOXINE 100 MG TABLET PO SCH (08:45)
[2018-03-21 12:11] LABS: CALCIUM 8.2 mg/dL (8.5-10.3); CREATININE 1.8 mg/dL (0.4-1.0)
[2018-03-21] MEDS ORDERED: SODIUM POLYSTYRENE SULFONATE 15 GM/60 ML BOTTLE PO SCH (13:00)
[2018-03-21] MEDS: SODIUM CHLORIDE 0.9% 1,000 ML IV SCH (14:01)
--- NOTE | 2018-03-21 14:59 | PROVIDER PROGRESS NOTE ---
Assessment/Plan - Problem List (1) Hyperkalemia Assessment/Plan: Potassium yazmin, despite saline bolus to treat MABEL. Will continue saline hydration and also start Kayexelate. Monitor K bid. (2) Dehydration Assessment/Plan: Clinically the patient has no further dryness of oral mucosa. Will continue iv hydration. Monitor I's and O's carefully. (3) Acute renal insufficiency Assessment/Plan: No significant improvement in creat after hydration for [address] done at admission (to evaluate her N/V) showed normal kidneys, no stones and no hydronephrosis. Will continue peripheral iv hydration. Avoid nephrotoxins. Monitor daily BUN/creat and bid Potassium. Will evaluate with a nuclear scan for medical renal disease vs consider transfer for higher level of care with a Nephrology specialty. (4) IDDM (insulin dependent diabetes mellitus) Assessment/Plan: Continue carb controlled diet and Insulin coverage and POC glu monitoring. (5) Hepatic failure secondary to chronic hepatic disease Qualifiers: Liver failure chronicity: unspecified chronicity Assessment/Plan: Cirrhosis was seen on CT of abdomen at admission 2 days ago, with mild ascites. 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 She is to be evaluated for a liver transplant listing next month. Check INR, to evaluate lever synthetic function; it was not obtained at admission. Will monitor LFTs daily vs consider for transfer to a higher level of care hospital with Gastro and nephrology specialties. Monitor BP, avoid hypotension to prevent hypoperfusion. (6) Hx of CABG Assessment/Plan: Bradycardia since admission. Nadolol has been decreased. Continue telemetry (7) Vomiting Qualifiers: Vomiting type: unspecified Vomiting Intractability: non-intractable Nausea presence: with nausea Qualified Code(s): R11.2 - Nausea with vomiting, unspecified Assessment/Plan: Resolved - Current Meds Current Meds: Current Medications Generic Name Dose Route Start Last Admin Trade Name Freq PRN Reason Stop Dose Admin Docusate Sodium 250 - 500 mg 03/20/18 15:00 03/21/18 08:35 Colace 250mg Capsule PO 250 mg BID GWENDOLYN Administration Sodium Chloride 1,000 mls @ 60 mls/hr 03/20/18 19:00 03/21/18 14:01 Normal Saline 0.9% IV 60 mls/hr .[id number] GWENDOLYN Administration Insulin Aspart 1 - 9 unit 03/20/18 17:00 03/21/18 11:51 Novolog SUBQ 1 unit 0800,1200,1700,2100 GWENDOLYN Administration Protocol Insulin Glargine 30 unit 03/20/18 21:00 03/20/18 20:43 Lantus Solostar SUBQ 30 unit QPM GWENDOLYN Administration Isosorbide Mononitrate 60 mg 03/20/18 09:00 03/21/18 08:40 Imdur PO 60 mg DAILY GWENDOLYN Administration Nadolol 5 mg 03/20/18 21:00 03/21/18 08:40 Corgard PO 5 mg BID GWENDOLYN Administration Pantoprazole Sodium 40 mg 03/20/18 07:00 03/21/18 06:55 Protonix PO 40 mg QDAC GWENDOLYN Administration Pyridoxine HCl 50 mg 03/20/18 09:00 03/21/18 08:45 Vitamin B-6 PO 50 mg DAILY GWENDOLYN Administration Senna 8.6 mg 03/20/18 21:00 03/21/18 08:35 Senokot PO 8.6 mg BID GWENDOLYN Administration Sodium Chloride 10 ml 03/19/18 23:40 03/20/18 04:19 Normal Saline Flush 0.9% IVP 10 ml PRN PRN Administration NEEDED PER PROVIDER ORDERS Sodium Chloride 10 ml 03/20/18 01:00 03/21/18 08:40 Normal Saline Flush 0.9% IVP Not Given 0100,0900,1700 [facility] Sodium Polystyrene Sulfonate 15 gm 03/21/18 13:00 03/21/18 14:01 Kayexalate PO 15 gr BID GWENDOLYN Administration - Lab Result Fish Bone Diagrams: 03/21/18 06:39 03/21/18 11:56 - Additional Planning My Orders: My Active Orders 03/20/18 15:00 Docusate Sodium 250Mg Capsule [Colace 250Mg Capsule] 250 - 500 mg PO BID 03/20/18 17:00 Insulin Aspart [NovoLOG] 1 - 9 unit SUBQ 0800,1200,1700,2100 03/20/18 19:00 Sodium Chloride 0.9% [Normal Saline 0.9%] 1,000 ml IV 60 mls/hr 03/20/18 21:00 Nadolol [Corgard] 5 mg PO BID Senna [Senokot] 8.6 mg PO BID 03/20/18 Dinner DIET [Carb-controlled Diet] [DIET] 03/21/18 13:00 Sod Polystyrene Sulf. [Kayexalate] 15 gm PO BID Subjective - Subjective Patient Reports: Feeling Better, Resting Comfortably, No Complaints Objective Vital Signs: Vital Signs - 24 hr 03/20/18 03/20/18 03/20/18 15:44 21:00 23:34 Temperature 36.7 C 36.8 C 36.8 C Heart Rate [ 50 L 50 L 49 L Brachial] Respiratory 14 16 20 Rate Blood Pressure 149/72 H [Left Brachial artery] Blood Pressure 136/44 H 130/46 L [Right Brachial artery] O2 Saturation 95 94 92 03/21/18 03/21/18 03/21/18 05:00 08:47 14:01 Temperature 36.7 C 36.4 C L Heart Rate [ 56 L 50 L Brachial] Respiratory 20 21 Rate Blood Pressure 122/42 L 169/62 H 150/73 H [Left Brachial artery] Blood Pressure [Right Brachial artery] O2 Saturation 93 94 Oxygen O2 Source Room air I&O (Last 24 Hrs): Intake and Output Totals x24h 03/19/18 03/20/18 03/21/18 23:59 23:59 23:59 Intake Total 2883 2555 Balance 2883 2555 General: Alert, Oriented x3 HEENT: Mucous membr. moist/pink Neck: Supple Neuro: Non Focal Cardiovascular: Regular rate, No murmurs Respiratory: No respiratory distress, Breath sounds nml Abdomen: Soft Extremities: No edema - Results Results: Laboratory Results WBC 6.4 x10^3/uL (4.8-10.8) 03/21/18 06:39 RBC 2.84 10^6/uL (4.20-5.40) L 03/21/18 06:39 Hgb 9.4 g/dL (12.0-16.0) L 03/21/18 06:39 Hct 28.0 % (37.0-47.0) L 03/21/18 06:39 MCV 98.6 fL (81.0-99.0) 03/21/18 06:39 MCH 33.2 pg (27.0-31.0) H 03/21/18 06:39 MCHC 33.7 g/dL (32.0-36.0) 03/21/18 06:39 RDW 13.6 % (12.0-15.0) 03/21/18 06:39 Plt Count 45 10^3/uL (130-450) L 03/21/18 06:39 MPV 10.0 fL (7.9-10.8) 03/21/18 06:39 Neut # 4.3 10^3/uL (1.5-6.6) 03/19/18 18:50 Lymph # 0.9 10^3/uL (1.5-3.5) L 03/19/18 18:50 [place] # 0.4 10^3/uL (0.0-1.0) 03/19/18 18:50 Eos # 0.1 10^3/uL (0.0-0.7) 03/19/18 18:50 Baso # 0.1 10^3/uL (0.0-0.1) 03/19/18 18:50 Absolute Nucleated RBC 0.00 x10^3/uL 03/19/18 18:50 Nucleated RBC % 0.0 /100WBC 03/19/18 18:50 Sodium 141 mmol/L (135-145) 03/21/18 11:56 Potassium 5.3 mmol/L (3.5-5.0) H 03/21/18 11:56 Chloride 116 mmol/L (101-111) H 03/21/18 11:56 Carbon Dioxide 17 mmol/L (21-32) L 03/21/18 11:56 Anion Gap 8.0 (6-13) 03/21/18 11:56 BUN 49 mg/dL (6-20) H 03/21/18 11:56 Creatinine 1.8 mg/dL (0.4-1.0) H 03/21/18 11:56 Estimated GFR (MDRD) 28 (>89) L 03/21/18 11:56 Glucose 179 mg/dL (70-100) H 03/21/18 11:56 POC Whole Bld Glucose 177 mg/dL (70 - 100) H 03/21/18 11:32 Glycated Hemoglobin 6.8 % (4.6-6.2) H 03/19/18 18:50 Estim Average Glucose 148 (70-100) H 03/19/18 18:50 Calcium 8.2 mg/dL (8.5-10.3) L 03/21/18 11:56 Total Bilirubin 1.6 mg/dL (0.2-1.0) H 03/19/18 18:50 GGT 68 IU/L (8-38) H 03/20/18 11:05 AST 51 IU/L (10-42) H 03/19/18 18:50 ALT 37 IU/L (10-60) 03/19/18 18:50 Alkaline Phosphatase 176 IU/L (42-121) H 03/19/18 18:50 Troponin I < 0.04 ng/mL (<0.49) 03/20/18 11:05 Total Protein 7.1 g/dL (6.7-8.2) 03/19/18 18:50 Albumin 3.2 g/dL (3.2-5.5) 03/19/18 18:50 Globulin 3.9 g/dL (2.1-4.2) 03/19/18 18:50 Albumin/Globulin Ratio 0.8 (1.0-2.2) L 03/19/18 18:50 Amylase 54 U/L (28-100) 03/20/18 06:27 Lipase 36 U/L (22-51) 03/20/18 06:27
[2018-03-21] MEDS ORDERED: ZINC OXIDE 20% OINT 28.35 GM TUBE TOP PRN (17:23)
[2018-03-21] MEDS ORDERED: COD LIVER OIL/ZINC OXIDE 113 GM TUBE TOP PRN (17:25)
--- NOTE | 2018-03-21 17:43 | Discharge Plan ---
Discharge Plan Disposition: 02 Transfer Acute Care Hosp Condition: Fair Diet: Diabetic No Smoking: If you smoke, Please STOP! Call for help.
[2018-03-21 18:36] LABS: CREATININE 2.1 mg/dL (0.4-1.0)
[2018-03-21 18:38] LABS: INR 1.3 (0.8-1.2); PT - PROTHROMBIN TIME 14.5 secs (9.9-12.6)
[2018-03-21 18:42] LABS: ALBUMIN 3.2 g/dL (3.2-5.5); BILIRUBIN,DIRECT 0.3 mg/dL (0.1-0.5); BILIRUBIN,TOTAL 1.8 mg/dL (0.2-1.0); TOTAL PROTEIN 6.7 g/dL (6.7-8.2)
[2018-03-21 19:21] VITALS: BP 139/44
--- NOTE | 2018-03-21 20:23 | DISCHARGE SUMMARY ---
Physician: Fanta Zimmerman MD DATE OF ADMISSION: 03/19/2018 DATE OF DISCHARGE: 03/21/2018 DISCHARGE/TRANSFER SUMMARY HISTORY OF PRESENT ILLNESS: This is a 72-year-old white female with a history of CMV and steatohepatitis, coronary artery disease with CABG in the past, diabetes on insulin, who has never been at this hospital previously. The patient presented to the hospital after several episodes of nausea and vomiting and was found to have significant hyperkalemia and acute renal failure and admitted for management. HOSPITAL COURSE AND DISCHARGE DIAGNOSES 1. Hyperkalemia. The patient received intravenous saline boluses and hydration with saline, was started on Kayexalate. Her potassium dropped from admission potassium of 6.1 down to 5.3 and 5.0, but on the following day yazmin to 5.3. Her oral spironolactone was discontinued and lisinopril was stopped. A transfer was requested (see below). 2. Dehydration. Because of the patient's nausea and vomiting, clinical evidence of dehydration with dry oral mucosa, she received intravenous hydration and despite clinical improvement, she had continued abnormal creatinine and potassium. Her nausea and vomiting stopped, and she was able to eat and drink in less than 24 hours. 3. Acute renal insufficiency. The patient had a CT done on admission for evaluation of the nausea and vomiting that showed normal kidney sizes, no stones and no hydronephrosis. With intravenous saline hydration including several boluses, her creatinine hovered between 1.8 and 1.9. On the day of transfer, it was 2.1. Because of the concern for hepatorenal syndrome, I reached out to the hospitalist at [facility] where her general doc and architectural designer are associated and she was accepted in transfer by the hospitalist for further management. 4. Insulin-dependent diabetes. The patient was on a carbohydrate-controlled diet and insulin coverage and point of care glucose monitoring while here. Her bowel rest for the nausea and vomiting was quickly advanced and she tolerated solid foods while here. 5. Hepatic failure secondary to chronic hepatic disease. We have no prior records regarding the details of this lady's liver pathology. 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 At the CT of the abdomen, there was description of mild bibasilar reticular opacities in the lungs, but no other description of a shunt. That CT also showed coronary artery calcification, minimal perihepatic ascites, calcified gallstones distal half of the gallbladder, no bile duct dilatation, mild diffuse peripancreatic stranding which could represent acute pancreatitis, splenomegaly with a length of 14.4 cm, no bowel obstruction and her urinary bladder contained a tiny gas bubble and vascular structures had marked atherosclerotic calcification of the abdominal aorta and branches. Her labs showed an AST of 51, ALT of 37, alkaline phosphatase of 176 , and bilirubin of 1.6 on admission. Other testing revealed INR of 1.3 on the day of discharge. The patient was accepted in transfer by the [facility], but also the hepatology Fellow was on a group call and heard about her case. Her MELD score was 15. 6. History of coronary artery bypass graft. The patient had bradycardia since admission, heart rates running in the 40s and 50s, she even touched 36 briefly. This patient was on Nadolol 20 mg in the morning, 10 mg in the evening which was slowly decreased and at the time of transfer, Nadolol was 5 mg p.o. b.i.d., producing a heart rate of 55. There were no complaints of angina or dyspnea, however, the patient mostly sat in a chair in her room. 7. Vomiting. This resolved with minimal doses of antiemetics in less than 24 hours. The patient felt that she had possible "food poisoning" or this may have been viral gastroenteritis. With a normal lipase level of 42, and repeat of 36, the pancreatic stranding on imaging was not felt to be acute nor was pancreatitis the etiology of her vomiting. LABS AND IMAGING: revieweed and summarized above. ALLERGIES 1. ASPIRIN. 2. CEFTIN. 3. CIPRO. 4. CODEINE. 5. DOXYCYCLINE. 6. IBUPROFEN. 7. METFORMIN. 8. NAPROSYN. 9. NITROFURANTOIN. 10. OXYCODONE. 11. INDERAL. 12. SULFA. 13. TRAMADOL. 14. SURGICAL TAPE. 15. SILVER. MEDICATIONS AT THE TIME OF TRANSFER 1. Colace. 2. Lantus insulin 30 units every evening and a sliding scale moderate coverage of insulin. 3. Imdur 60 mg daily. 4. Zinc oxide topically p.r.n. 5. Nadolol 5 mg b.i.d. 6. Sublingual nitroglycerin p.r.n. 7. Protonix 40 mg daily. 8. Compazine p.r.n. 9. Vitamin B6 daily. 10. Senokot b.i.d. 11. Saline IV at 100 mL an hour. 12. Kayexalate 15 g p.o. b.i.d. 13. Restoril p.r.n. 14. iv Normal Saline at 100 cc/hr. PHYSICAL EXAMINATION AT DISCHARGE VITAL SIGNS: Blood pressure 156/100, heart rate 55 in sinus rhythm, afebrile, room air saturation 94%. HEENT: Unremarkable except poor dentition. No icterus. NECK: Without JVD or carotid bruits. CHEST: Clear. HEART: Sounds normal. ABDOMEN: Distended with a pannus, nontender, normal bowel sounds, I cannot rule out ascites. EXTREMITIES: No clubbing, cyanosis, or edema. NEUROLOGIC: Intact. No asterixis. No nystagmus. CODE STATUS: FULL CODE. FOLLOWUP: This will be determined after her evaluation and management at higher level of care hospital at [facility]. Time required to complete this entire discharge, review of chart, transfer and COBRA forms: 60 minutes. TD: 03/21/2018 19:04 RICHARD
== END 2018-03-21 20:00 | disposition short-term general hospital (02) | DRG 640 ==
LOC: ED 18:18 → MS3 23:40
PROVIDERS: ADMIT Hospitalist; ATTEND Internal Medicine
DX: E87.5 Hyperkalemia (principal); K76.7 Hepatorenal syndrome; N28.9 Disorder of kidney and ureter, unspecified; K85.90 Acute pancreatitis without necrosis or infection, unspecified; N17.9 Acute kidney failure, unspecified; B25.1 Cytomegaloviral hepatitis; E86.0 Dehydration; K72.90 Hepatic failure, unspecified without coma; R11.2 Nausea with vomiting, unspecified; K74.60 Unspecified cirrhosis of liver; K75.81 Nonalcoholic steatohepatitis (NASH); I25.10 Atherosclerotic heart disease of native coronary artery without angina pectoris; E11.9 Type 2 diabetes mellitus without complications; I50.9 Heart failure, unspecified; I25.2 Old myocardial infarction; Z95.1 Presence of aortocoronary bypass graft; Z79.4 Long term (current) use of insulin; Z79.82 Long term (current) use of aspirin; Z79.899 Other long term (current) drug therapy
CPT/HCPCS: 36415; 74176; 80048; 80053; 80076; 82150; 82565; 82977; 83036; 83690; 84132; 84484; 85025; 85027; 85610; 93005; 96361; 96365; 96375; 99284; 99285